=== PATIENT | male | born 1965 | race Two or more races ===

== ENCOUNTER 2025-03-14 23:30 | Inpatient (IN) | payer OTHER ==
[~2025-03-14] VITALS: Ht 182.9 cm; Wt 183.3 kg
[2025-03-14] MEDS: ALBUTEROL FS 2.5 MG/3 ML VIAL.NEB NEB ONE (23:58)
[2025-03-14] MEDS ORDERED: ALBUTEROL FS 2.5 MG/3 ML VIAL.NEB ONE (23:59)
[2025-03-15] VITALS (27 sets, daily range): BP systolic 110–168; BP diastolic 62–96; TEMP 97.4–99.1; O2SAT 84–100
[2025-03-15] MEDS ORDERED: FUROSEMIDE 40 MG/4 ML VIAL ONE (00:01)
[2025-03-15 00:19] LABS: PLATELET COUNT (AUTO) 210 K/uL (150-450); RED BLOOD CELL COUNT(AUTO) 3.86 MIL/uL (4.5-6.0); RED CELL DISTRIBUTION WIDTH 15.1 % (11.5-15.0); WHITE BLOOD COUNT (AUTO) 12.6 K/uL (4.3-11.0)
[2025-03-15] MEDS ORDERED: CLON-418 PO (00:22)
[2025-03-15] MEDS ORDERED: ASPI-1169 PO (00:22)
[2025-03-15] MEDS ORDERED: DOCU250C14 PO (00:22)
[2025-03-15] MEDS ORDERED: ZINC220T4 PO (00:22)
[2025-03-15] MEDS ORDERED: BUDE10.2 INH (00:22)
[2025-03-15] MEDS ORDERED: ACET-2030 PO (00:22)
[2025-03-15] MEDS ORDERED: ASCO500T10 PO (00:22)
[2025-03-15] MEDS ORDERED: METO25TA6 PO (00:22)
[2025-03-15] MEDS ORDERED: MELA3CAP2 PO (00:22)
[2025-03-15] MEDS ORDERED: APIX5TAB PO (00:22)
[2025-03-15] MEDS ORDERED: FLUO10CA29 PO (00:22)
[2025-03-15] MEDS ORDERED: DAPA10TA PO (00:22)
[2025-03-15] MEDS ORDERED: SILD10SU2 PO (00:22)
[2025-03-15] MEDS ORDERED: FAMO20TA80 PO (00:22)
[2025-03-15] MEDS ORDERED: ALBU5SOL7 INH (00:22)
[2025-03-15] MEDS ORDERED: ACET325T53 PO ×2 (00:22)
[2025-03-15] MEDS ORDERED: ATOR80TA PO (00:22)
[2025-03-15] MEDS ORDERED: BISA10SU61 RC (00:22)
[2025-03-15] MEDS ORDERED: CHOL400T11 PO (00:22)
[2025-03-15] MEDS ORDERED: FURO40TA5 PO (00:22)
[2025-03-15] MEDS ORDERED: ZOLP5TAB8 PO (00:22)
[2025-03-15 00:29] LABS: CALCIUM, SERUM 9.8 mg/dL (8.5-10.1); CREATININE 0.7 mg/dL (0.6-1.3); SODIUM SERUM 139.0 mmol/L (136-145); UREA NITROGEN, BLOOD 15.0 mg/dL (7-18)
[2025-03-15 00:37] LABS: LACTIC ACID 1.9 mmol/L (0.4-2.0)
[2025-03-15] MEDS: FUROSEMIDE 40 MG/4 ML VIAL IV ONE (00:53)
[2025-03-15 01:01] LABS: ASPARTATE AMINOTRANSFERASE 25.0 U/L (15-37); NT-PRO BNP 681.0 pg/mL (0-125); TOTAL PROTEIN, SERUM 8.6 g/dL (6.4-8.2)
[2025-03-15 01:19] LABS: ABG BASE EXCESS 15.0 mmol/L (-2.0-3.0); ABG OXYGEN SATURATION 99.5 % (94.0-98.0); ABG PCO2 71.4 mmHg (35.0-48.0); ABG PH 7.396 (7.350-7.450); ABG PO2 202.7 mmHg (83.0-108.0); ABG TOTAL HEMOGLOBIN 11.6 G/dL (13.5-17.5); FRACTIONATED INSPIRED OXYGEN 70.0 %; SET RATE, BG 14.0; SITE, ABG RIGHT RADIAL
[2025-03-15 01:51] LABS: APPEARANCE,URINE CLEAR (CLEAR); BLOOD, URINE NEGATIVE Ery/uL (NEGATIVE); LEUKOCYTE ESTERASE ,URINE NEGATIVE (NEGATIVE); NITRITE, URINE NEGATIVE (NEGATIVE); UGLUCOSE 2+ mg/dL (NEGATIVE)
[2025-03-15 01:59] LABS: ADD URINE CULTURE NO; SQUAMOUS EPITHELIAL CELL,UR Few /HPF (None Seen)
[2025-03-15] MEDS ORDERED: ACETAMINOPHEN 325 MG TABLET PO PRN (02:30)
[2025-03-15] MEDS ORDERED: IPRATROPIUM NEB FS 0.5 MG/2.5 ML AMPUL.NEB NEB PRN (02:30)
[2025-03-15] MEDS ORDERED: MAGNESIUM HYDROXIDE 30 ML UDC PO PRN (02:30)
[2025-03-15] MEDS ORDERED: ALBUTEROL FS 2.5 MG/3 ML VIAL.NEB NEB PRN (02:30)
[2025-03-15] MEDS ORDERED: MAG HYDROX/AL HYDROX/SIMETH 30 ML UDC PO PRN (02:30)
[2025-03-15] MEDS ORDERED: CEFTRIAXONE 1 G in IV D5W 50 ML IV SCH ×2 (02:30→02:40)
[2025-03-15] MEDS ORDERED: CEFTRIAXONE 1 G VIAL ONE (03:00)
[2025-03-15] MEDS ORDERED: ENOXAPARIN SODIUM 40 MG/0.4 ML DISP.SYRIN SQ ONE (03:00)
[2025-03-15] MEDS: ENOXAPARIN SODIUM 40 MG/0.4 ML DISP.SYRIN SQ ONE (03:10)
[2025-03-15] MEDS: CEFTRIAXONE 1 G in IV D5W 50 ML IV SCH (03:13)
[2025-03-15 06:45] LABS: PLATELET COUNT (AUTO) 209 K/uL (150-450); RED BLOOD CELL COUNT(AUTO) 3.95 MIL/uL (4.5-6.0); RED CELL DISTRIBUTION WIDTH 15.5 % (11.5-15.0); WHITE BLOOD COUNT (AUTO) 7.2 K/uL (4.3-11.0)
[2025-03-15 06:59] LABS: ASPARTATE AMINOTRANSFERASE 17 U/L (15-37); CALCIUM, SERUM 10.0 mg/dL (8.5-10.1); CREATININE 1.1 mg/dL (0.6-1.3); NT-PRO BNP 860 pg/mL (0-125); PHOSPHORUS 2.3 mg/dL (2.5-4.9); SODIUM SERUM 141 mmol/L (136-145); TOTAL PROTEIN, SERUM 8.4 g/dL (6.4-8.2); UREA NITROGEN, BLOOD 17 mg/dL (7-18)
[2025-03-15] MEDS ORDERED: SILD20TA2 PO (07:51)
[2025-03-15] MEDS ORDERED: SENN8.6T19 PO (07:51)
[2025-03-15] MEDS ORDERED: MELA3TAB41 PO (07:51)
[2025-03-15] MEDS ORDERED: NA P133E RC (07:51)
[2025-03-15] MEDS ORDERED: CHOL100043 PO (07:51)
[2025-03-15] MEDS ORDERED: PROTEIN LIQUID PO (07:51)
[2025-03-15] MEDS ORDERED: MODAFINIL PO (07:51)
[2025-03-15] MEDS ORDERED: MULT-213 PO (07:51)
[2025-03-15] MEDS ORDERED: CALC-1276 PO (07:51)
[2025-03-15] MEDS ORDERED: LACT1TAB25 PO (07:51)
[2025-03-15] MEDS ORDERED: MAGN400O6 PO (07:51)
[2025-03-15] MEDS: PANTOPRAZOLE 40 MG VIAL IV SCH (08:02)
[2025-03-15] MEDS: CLONIDINE HCL 0.1 MG TABLET PO PRN (08:26)
[2025-03-15] MEDS: SILDENAFIL CITRATE 20 MG TABLET PO SCH (08:56)
[2025-03-15] MEDS: APIXABAN 5 MG TABLET PO SCH (08:57)
[2025-03-15] MEDS: K PHOS NEUTRAL 250 MG TABLET PO ONE (16:07)
[2025-03-15] MEDS ORDERED: ENOXAPARIN SODIUM 40 MG/0.4 ML DISP.SYRIN SQ SCH (21:00)
[2025-03-16] VITALS (47 sets, daily range): BP systolic 93–155; BP diastolic 47–84; TEMP 97.6–98.1; O2SAT 85–100
[2025-03-16] MEDS: ONDANSETRON HCL/PF 4 MG/2 ML VIAL IVP PRN (03:52)
[2025-03-16 07:39] LABS: ABG BASE EXCESS 11.6 mmol/L (-2.0-3.0); ABG OXYGEN SATURATION 94.7 % (94.0-98.0); ABG PCO2 83.6 mmHg (35.0-48.0); ABG PH 7.306 (7.350-7.450); ABG PO2 85.7 mmHg (83.0-108.0); ABG TOTAL HEMOGLOBIN 11.3 G/dL (13.5-17.5); FLOW, BLOOD GAS 3.00 L/min (0.00-30.00); FRACTIONATED INSPIRED OXYGEN 32.0 %; SITE, ABG LEFT RADIAL
[2025-03-16] MEDS: PANTOPRAZOLE 40 MG TABLET.DR PO SCH (08:08)
[2025-03-16 08:39] LABS: PLATELET COUNT (AUTO) 225 K/uL (150-450); RED BLOOD CELL COUNT(AUTO) 3.73 MIL/uL (4.5-6.0); RED CELL DISTRIBUTION WIDTH 15.7 % (11.5-15.0); WHITE BLOOD COUNT (AUTO) 8.6 K/uL (4.3-11.0)
[2025-03-16 08:58] LABS: CALCIUM, SERUM 9.4 mg/dL (8.5-10.1); CREATININE 1.0 mg/dL (0.6-1.3); PHOSPHORUS 3.9 mg/dL (2.5-4.9); UREA NITROGEN, BLOOD 23.0 mg/dL (7-18)
[2025-03-16 09:04] LABS: SODIUM SERUM 141.0 mmol/L (136-145)
[2025-03-16] MEDS: SILDENAFIL CITRATE 20 MG TABLET PO SCH (09:22)
[2025-03-16] MEDS: DOCUSATE SODIUM 250 MG CAPSULE PO SCH (09:22)
[2025-03-16] MEDS: ASPIRIN 81 MG TAB.CHEW PO SCH (09:23)
[2025-03-16] MEDS: FUROSEMIDE 40 MG TABLET PO SCH (09:23)
[2025-03-16] MEDS: ATORVASTATIN 40 MG TABLET PO SCH (09:23)
[2025-03-16] MEDS: APIXABAN 5 MG TABLET PO SCH (09:25)
[2025-03-16] MEDS: METOPROLOL TARTRATE 25 MG TABLET PO SCH (09:26)
[2025-03-16] MEDS: DAPAGLIFLOZIN PROPANEDIOL 10 MG TABLET PO SCH (09:27)
[2025-03-16] MEDS: ALBUTEROL FS 2.5 MG/3 ML VIAL.NEB NEB SCH (13:34)
[2025-03-16] MEDS ORDERED: BUDESONIDE RESPULE INH 0.5 MG/2 ML AMPUL.NEB HHN SCH (17:00)
[2025-03-16] MEDS: BUDESONIDE RESPULE INH 0.5 MG/2 ML AMPUL.NEB HHN SCH (20:04)
[2025-03-16] MEDS: ZOLPIDEM TARTRATE 5 MG TABLET PO SCH (21:44)
[2025-03-17] VITALS (13 sets, daily range): BP systolic 91–111; BP diastolic 45–75; TEMP 97.1–98.2; O2SAT 90–100
[2025-03-18] VITALS (14 sets, daily range): BP systolic 92–105; BP diastolic 41–65; TEMP 97.3–98.4; O2SAT 92–100
[2025-03-18 10:03] LABS: ABG BASE EXCESS 15.2 mmol/L (-2.0-3.0); ABG OXYGEN SATURATION 89.0 % (94.0-98.0); ABG PCO2 63.8 mmHg (35.0-48.0); ABG PH 7.436 (7.350-7.450); ABG PO2 58.1 mmHg (83.0-108.0); ABG TOTAL HEMOGLOBIN 11.4 G/dL (13.5-17.5); FLOW, BLOOD GAS 2.00 L/min (0.00-30.00); FRACTIONATED INSPIRED OXYGEN 28.0 %; SITE, ABG RIGHT RADIAL
[2025-03-19] VITALS (11 sets, daily range): BP systolic 104–129; BP diastolic 51–78; TEMP 97.5–98.8; O2SAT 92–100
[2025-03-20] VITALS (12 sets, daily range): BP systolic 95–123; BP diastolic 50–70; TEMP 98.1–99; O2SAT 92–100
[2025-03-23] MEDS ORDERED: MUPIROCIN OINT 2% 22 GM TUBE NS SCH (21:00)
== END 2025-03-20 22:03 | DRG 140 ==
LOC: ER 23:32 → ICU 03-15 04:28 → TELE-TD 03-16 18:05 → TELE1 03-17 10:43
PROVIDERS: ADMIT Nurse Practitioner Family; ATTEND Internal Medicine
PROC: 5A09457 Assistance with Respiratory Ventilation, 24-96 Consecutive Hours, Continuous Positive Airway Pressure (ICD-10-PCS; principal; 2025-03-15)
DX: J44.1 Chronic obstructive pulmonary disease with (acute) exacerbation (principal); J96.21 Acute and chronic respiratory failure with hypoxia; I50.33 Acute on chronic diastolic (congestive) heart failure; I27.20 Pulmonary hypertension, unspecified; E44.1 Mild protein-calorie malnutrition; E66.2 Morbid (severe) obesity with alveolar hypoventilation; D68.59 Other primary thrombophilia; E88.09 Other disorders of plasma-protein metabolism, not elsewhere classified; J96.22 Acute and chronic respiratory failure with hypercapnia; K21.9 Gastro-esophageal reflux disease without esophagitis; D64.9 Anemia, unspecified; Z20.822 Contact with and (suspected) exposure to COVID-19; Z79.899 Other long term (current) drug therapy; Z79.82 Long term (current) use of aspirin; Z79.01 Long term (current) use of anticoagulants; Z79.51 Long term (current) use of inhaled steroids; D72.829 Elevated white blood cell count, unspecified; E78.5 Hyperlipidemia, unspecified; E87.5 Hyperkalemia; Z86.711 Personal history of pulmonary embolism; Z68.43 Body mass index [BMI] 50.0-59.9, adult; I11.0 Hypertensive heart disease with heart failure; I25.10 Atherosclerotic heart disease of native coronary artery without angina pectoris; E11.9 Type 2 diabetes mellitus without complications; I48.91 Unspecified atrial fibrillation; Z86.718 Personal history of other venous thrombosis and embolism
CPT/HCPCS: 36415; 36600; 71045-TC; 80048-TC; 80053-TC; 80076-TC; 81001; 82803-TC; 83605-TC; 83735-TC; 83880; 84100-TC; 84484-TC; 85025-TC; 87040-TC; 87081-TC; 93307-TC; 93970-TC; 94760-TC; 94799-TC; A4223; G0378; J0696; J1650; J1938; J2405; J2470; J2919; J7040; J7060